=== PATIENT | male | born 1985 | race Caucasian/White ===

== ENCOUNTER 2020-04-06 08:28 | Emergency (ER) | payer SELFPAY ==
[2020-04-06 08:45] VITALS: BP 148/85; PULSE 103; RESP 20; TEMP 36.6; O2SAT 98
--- NOTE | 2020-04-06 09:21 | ED.GENADULT ---
HPI - General Adult General Chief complaint: Upper Respiratory Infection Stated complaint: ACHES SOB Source: patient Mode of arrival: ambulatory Limitations: no limitations History of Present Illness HPI narrative: Remington is a previously healthy 34M that presented to the ED with 1 day of worsening fatigue, body aches, mild cough, and sore throat. No CP or SOB reported. He is unsure of any sick/COVID contacts. Symptoms were mildly better with ibuprofen and rest. No GI symptoms. Related Data Home Medications Medication Instructions Recorded Confirmed No Home Medications 04/06/20 04/06/20 Allergies Allergy/AdvReac Type Severity Reaction Status Date / Time No Known Allergies Allergy Unverified 11/28/17 21:42 Review of Systems Constitutional: Constitutional: Reports chills, Reports fatigue, Denies fever(s) and Reports weakness Eyes: Eyes: Reports no additional eye complaints and Denies change in vision ENT: Reports as per HPI Cardiovascular: Cardiovascular: Denies chest pain and Denies radiating jaw, neck or arm pain Respiratory: Respiratory: Reports as per HPI, Reports cough, Denies dyspnea and Denies wheezing Gastrointestinal: Gastrointestinal: Denies abdominal pain, Denies nausea and Denies vomiting Genitourinary: Genitourinary: Reports no additional male genitourinary complaints Musculoskeletal: Musculoskeletal: Reports no additional musculoskeletal complaints Integumentary/Breasts: Skin/Breast: Reports system reviewed and no additional complaints, except as docu Neurologic: Reports system reviewed and no additional complaints, except as documented Psychiatric: Psychiatric: Reports no additional psychiatric complaints Exam Const: General: no acute distress and alert Orientation/consciousness: patient oriented x3 Limitations: No altered mental status HENMT: Head: normal to inspection Other: atraumatic Eyes: Conjunctivae: conjunctivae normal Pupils: Equal, round and reactive pupils present Neck: Neck: normal visual inspection Chest: Chest palpation & inspection: normal inspection of the chest Resp: Effort & Inspection: normal respiratory effort, not labored, no retractions and not tachypneic Auscultation: clear to auscultation bilaterally Other: No cough on exam Cardio: Rate: regular rate Rhythm: regular rhythm Heart sounds: no murmurs GI: Inspection: non-distended GI Palp: Yes Soft to palpation, No Tenderness to palpation present (GI) and No Guarding due to palpation present (GI) Auscultation: normal bowel sounds Skin: General skin exam: normal color Rashes: no rashes Neuro: General: patient oriented x3 and moves all extremities Extrem: General: normal to inspection Psych: Mental Status: mental status grossly normal Course Course Emergency Course: Remington was evaluated. He was given IM toradol for the pain. Labs were ordered as below. COVID test was positive. Other labs were unremarkable. He was educated on what too look for and to quarantine then discharged. Vital Signs Vital signs: Vital Signs Temperature 97.8 F 04/06/20 08:45 Pulse Rate 103 H 04/06/20 08:45 Respiratory Rate 20 04/06/20 08:45 Blood Pressure 148/85 H 04/06/20 08:45 Pulse Oximetry 98 04/06/20 08:45 Temperature 97.8 F 04/06/20 08:45 Pulse Rate 103 H 04/06/20 08:45 Respiratory Rate 20 04/06/20 08:45 Blood Pressure 148/85 H 04/06/20 08:45 Pulse Oximetry 98 04/06/20 08:45 Medical Decision Making Vital Signs Vital Signs: Vital Signs Temperature 97.8 F 04/06/20 08:45 Pulse Rate 103 H 04/06/20 08:45 Respiratory Rate 20 04/06/20 08:45 Blood Pressure 148/85 H 04/06/20 08:45 Pulse Oximetry 98 04/06/20 08:45 Temperature 97.8 F 04/06/20 08:45 Pulse Rate 103 H 04/06/20 08:45 Respiratory Rate 20 04/06/20 08:45 Blood Pressure 148/85 H 04/06/20 08:45 Pulse Oximetry 98 04/06/20 08:45 Lab Data Result diagrams: 04/06/20 09:18 1
[2020-04-06 09:26] LABS: Hematocrit 48.4 % (40.0-54.0); Hemoglobin 16.3 g/dL (14.0-18.0); Mean Corpuscular HGB Conc 33.7 g/dL (32.0-36.0); Mean Corpuscular Hemoglobin 30.4 pg (27.0-31.0); Mean Corpuscular Volume 90.1 fL (78.0-102.0); Mean Platelet Volume 8.6 fl (8.7-11.0); Platelet Count Result 268 K/mm3 (150-420); Red Blood Count 5.37 M/mm3 (4.70-6.10); Red Cell Distribution Width 11.7 % (11.6-14.4); White Blood Count 5.6 K/mm3 (4.8-10.8)
[2020-04-06] MEDS: KETOROLAC (*BKC) 60 MG/2 ML VIAL 30 MG IM (09:30)
[2020-04-06 09:43] LABS: Alanine Aminotransferase 66 U/L (16-63); Alkaline Phosphatase 70 U/L (46-116); Anion Gap 10 mmol/L (8-16); Aspartate Amino Transferase 28 U/L (15-37); Bilirubin,Total 0.3 mg/dL (0.00-1.00); Blood Urea Nitrogen 10 mg/dL (7-18); Calcium 8.8 mg/dL (8.5-10.1); Carbon Dioxide 25 mmol/L (21-32); Chloride 103 mmol/L (98-108); Estimated CRCL calculation 104 ml/min; Estimated Glomerular Filt Rate > 60; Glucose 89 mg/dL (70-99); Osmolality Calculated 284 mOsm/kg (285-295); Potassium 4.5 mmol/L (3.5-5.1); Sodium 138 mmol/L (136-145); Total Protein 7.8 g/dL (6.4-8.2)
[2020-04-06 09:45] LABS: Influenza Control Valid (Valid)
[2020-04-06 09:46] LABS: SARS-CoV-2 Ag Positive (Negative)
[2020-04-06 10:01] LABS: Band Neutrophils Percent 0 % (0-6); Basophils Percent Manual 0 % (0-1); Eosinophils Absolute Manual 0.05 K/mm3 (0.02-0.5); Eosinophils Percent Manual 1 % (1-6); Lymphocytes Absolute Manual 0.78 K/mm3 (1.1-4.5); Lymphocytes Percent Manual 14 % (18-44); Monocytes Absolute Manual 0.61 K/mm3 (0.1-0.90); Monocytes Percent Manual 11 % (3-9); Neutrophils Absolute Manual 4.14 K/mm3 (1.3-6.7); Neutrophils Percent Manual 74 % (46-73); Platelet Estimate Adequate (Adequate); Total Cells Counted 100
[2020-04-06 10:04] VITALS: BP 148/85; PULSE 98; RESP 20; TEMP 36.8; O2SAT 97
== END 2020-04-06 10:15 | disposition home or self-care (01) ==
PROVIDERS: Emergency Provider Family Medicine; PCP Internal Medicine
DX: U07.1 COVID-19 (principal)
CPT/HCPCS: 36415; 80053; 85025; 87081; 87426; 87804; 87880; 96372; 99282; 99283; J1885

== ENCOUNTER 2020-05-23 10:25 | Emergency (ER) | payer SELFPAY ==
--- NOTE | ~2020-05-23 | CT_ITS ---
EXAMINATION: CT chest abdomen wo con DATE: 05/23/2020 11:24 INDICATION: Patient fell from ladder. Right lower chest and right upper quadrant abdominal trauma. TECHNIQUE: Computed tomography (CT) of the chest and abdomen was performed without intravenous contra st. Automated exposure control and iterative reconstruction technique were employed. Exam dose: 1099 .20 mGy-cm total exam DLP. COMPARISON: None FINDINGS: CHEST CT: The lungs are clear of infiltrate or consolidation. No pulmonary mass lesion is detected. Normal heart size. No pericardial or pleural effusion. No thoracic aortic aneurysm. No hilar or media stinal mass lesion or lymphadenopathy. ABDOMEN CT: No space-occupying mass lesion or laceration of the liver, spleen, pancreas, adrenal glands or kidney s is detected. The gallbladder is present. No bile duct or pancreatic duct dilatation. No urinary tract calculus or hydroureteronephrosis. Status post appendectomy. No bowel obstruction, bowel wall thickening, pneumatosis or intraperitoneal free air. Included skeletal structures are unremarkable. No rib fracture or thoracic or lumbar spine fracture i s evident. IMPRESSION: No significant abnormality Reviewed, dictated and finalized at [facility]. Reviewed, dictated and finalized at [facility]. [employer]ELOPER IMPRESSION: No significant abnormality
[2020-05-23 10:35] VITALS: BP 156/122; PULSE 102; RESP 20; TEMP 37; O2SAT 99
[2020-05-23] MEDS: KETOROLAC (*BKC) 60 MG/2 ML VIAL IM (11:11)
[2020-05-23 11:51] VITALS: BP 134/98
--- NOTE | 2020-05-23 11:53 | ED.FALL ---
HPI - Fall General Chief Complaint: Fall Stated Complaint: Fell off a ladder Time Seen by Provider: 05/23/20 10:40 Source: patient Mode of arrival: ambulatory Limitations: no limitations History of Present Illness HPI Narrative: Patient was working on a ladder and fell about 9:30am after loosing footing on a ladder. He was about 6 foot up at the time when he fell. He landed on a pole, on his right lower chest / right upper abdomen, and he comes in with a bruise to his right lower chest / upper abdomen area. He says he wants to be checked out because he has pain when he breathes. Pain is moderately severe, sharp, and ongoing, made worse with any movement. Pain has not been relieved by measures taken at home. Severity scale (1-10): 8 Related Data Allergies Allergy/AdvReac Type Severity Reaction Status Date / Time No Known Allergies Allergy Unverified 11/28/17 21:42 Review of Systems Constitutional: Constitutional: Reports no additional constitutional complaints Eyes: Eyes: Reports no additional eye complaints ENT: Reports system reviewed and no additional complaints, except as documented Cardiovascular: Cardiovascular: Reports no additional cardiovascular complaints Respiratory: Respiratory: Reports no additional respiratory complaints Comments: Sharp pain when deep breathing Gastrointestinal: Gastrointestinal: Reports no additional gastrointestinal complaints Genitourinary: Genitourinary: Reports no additional male genitourinary complaints Musculoskeletal: Musculoskeletal: Reports no additional musculoskeletal complaints Integumentary/Breasts: Skin/Breast: Reports system reviewed and no additional complaints, except as docu Neurologic: Reports system reviewed and no additional complaints, except as documented Psychiatric: Psychiatric: Reports no additional psychiatric complaints Endocrine: Endocrine: Reports no additional endocrine complaints Hematologic/Lymphatic: Hematologic/Lymphatic: Reports no additional hematologic/lymphatic complaints Allergic/Immunologic: Allergic/Immunologic: Reports no additional allergic/immunologic complaints [facility] Past Medical History Medical History No significant past medical history Surgical History Surgical History H/O shoulder surgery History of appendectomy Family History Family History Father COPD (chronic obstructive pulmonary disease) Social History Social History Smoking status: Never smoker Alcohol use details: rare alcohol use Exam Const: Orientation/consciousness: patient oriented x3 Other: mild distress HENMT: Head: normal to inspection Face and sinus: normal facial exam Eyes: Conjunctivae: conjunctivae normal Neck: Neck: normal visual inspection Chest: Chest palpation & inspection: normal inspection of the chest Resp: Effort & Inspection: normal respiratory effort Auscultation: clear to auscultation bilaterally Cardio: Rate: regular rate Rhythm: regular rhythm GI: GI Palp: Yes Soft to palpation Other: mild tenderness in RUQ /lower chest Back/Spine/Pelvis: Back: no CVA tenderness Skin: General skin exam: normal color Neuro: General: patient oriented x3 and moves all extremities Extrem: General: normal to inspection Psych: Mental Status: mental status grossly normal Course Course Emergency Course: He appears improved after ketorolac was given. CT of chest and abdomen was reviewed with the patient, which was negative. Vital Signs Vital signs: Vital Signs Temperature 37.0 C 05/23/20 10:35 Pulse Rate 102 H 05/23/20 10:35 Respiratory Rate 20 05/23/20 10:35 Blood Pressure 156/122 H 05/23/20 10:35 Pulse Oximetry 99 05/23/20 10:35 Temperature 37.0 C 05/23/20 10:35 Pulse Rate 102 H 05/23/20 10:35
== END 2020-05-23 12:02 | disposition home or self-care (01) ==
PROVIDERS: Emergency Provider Emergency Medicine; PCP Internal Medicine
DX: S30.1XXA Contusion of abdominal wall, initial encounter (principal); W11.XXXA Fall on and from ladder, initial encounter
CPT/HCPCS: 71250; 74150; 96372; 99283; 99284; J1885

== ENCOUNTER 2021-03-29 20:50 | Emergency (ER) | payer SELFPAY ==
--- NOTE | ~2021-03-29 | XR_ITS ---
EXAMINATION: XR hand RT min 3V EXAM DATE: 03/29/2021 22:28 INDICATION: Pain/swelling @ 3-5 metacarpals after smashing it in a door. TECHNIQUE: Right hand frontal, lateral and oblique projections obtained and reviewed. There is no pr ior study for comparison. FINDINGS: Right metacarpal bones are unremarkable. There are no acute fractures or dislocations iden tified. There is no subcutaneous gas. There is soft tissue swelling over the metacarpal bones. The re are no radiopaque foreign bodies. IMPRESSION: 1. Right hand exam without acute osseous findings. 2. Soft tissue swelling. Reviewed, dictated and finalized at location [facility]. FILLER
[2021-03-29 21:47] VITALS: BP 145/110; PULSE 100; RESP 21; TEMP 36.8; O2SAT 98
--- NOTE | 2021-03-29 22:14 | ED.GENADULT ---
HPI - General Adult General Chief complaint: Nausea/Vomiting/Diarrhea Stated complaint: throwing up, RT hand injury Source: patient and family Mode of arrival: ambulatory Limitations: no limitations History of Present Illness HPI narrative: Remington is a previously healthy 35M that presented to the ED with abdominal pain, nausea, vomiting and hand pain. He started having abdominal pain 2-3 days ago. He then started having several episodes of non-bloody vomiting and nausea. He denies CP, SOB, fevers, chills, painful urination and diarrhea. He also smashed his right hand while moving a fridge a couple days ago. It is still painful and swollen. Related Data Home Medications Medication Instructions Recorded Confirmed omeprazole magnesium [Prilosec OTC] 20 mg PO DAILY 03/29/21 03/29/21 Allergies Allergy/AdvReac Type Severity Reaction Status Date / Time No Known Allergies Allergy Verified 03/29/21 21:46 Review of Systems Constitutional: Constitutional: Reports no additional constitutional complaints Eyes: Eyes: Reports no additional eye complaints ENT: Reports system reviewed and no additional complaints, except as documented Cardiovascular: Cardiovascular: Reports no additional cardiovascular complaints Respiratory: Respiratory: Reports no additional respiratory complaints Gastrointestinal: Gastrointestinal: Reports as per HPI Genitourinary: Genitourinary: Reports no additional male genitourinary complaints Musculoskeletal: Musculoskeletal: Reports no additional musculoskeletal complaints Integumentary/Breasts: Skin/Breast: Reports system reviewed and no additional complaints, except as docu Neurologic: Reports system reviewed and no additional complaints, except as documented Psychiatric: Psychiatric: Reports no additional psychiatric complaints Endocrine: Endocrine: Reports no additional endocrine complaints Hematologic/Lymphatic: Hematologic/Lymphatic: Reports no additional hematologic/lymphatic complaints Allergic/Immunologic: Allergic/Immunologic: Reports no additional allergic/immunologic complaints [facility] Past Medical History Medical History No significant past medical history Surgical History Surgical History H/O shoulder surgery History of appendectomy Family History Family History Father COPD (chronic obstructive pulmonary disease) Social History Social History Smoking status: Never smoker Alcohol use details: rare alcohol use Exam Const: General: no acute distress and alert; No confusion Orientation/consciousness: patient oriented x3 Limitations: No altered mental status HENMT: Head: normal to inspection Other: normocephalic, atraumatic Eyes: Conjunctivae: conjunctivae normal Pupils: Equal, round and reactive pupils present Neck: Neck: normal visual inspection Chest: Chest palpation & inspection: normal inspection of the chest Resp: Effort & Inspection: normal respiratory effort, not labored and not tachypneic Auscultation: clear to auscultation bilaterally Cardio: Rate: regular rate Rhythm: regular rhythm GI: Inspection: non-distended GI Palp: Yes Soft to palpation, No Tenderness to palpation present (GI), No Guarding due to palpation present (GI) and No Rigid due to palpation Auscultation: normal bowel sounds Back/Spine/Pelvis: Back: no CVA tenderness Skin: General skin exam: normal color Rashes: no rashes Neuro: General: patient oriented x3 and moves all extremities Extrem: General: normal to inspection Psych: Appearance: grossly normal Mental Status: mental status grossly normal Course Course Emergency Course: Ordered zofran, and toradol for nausea and pain. Ordered labs, xrays and fluids. He turned down the IV fluids an
[2021-03-29 22:26] LABS: Basophils Absolute Auto 0.08 K/mm3 (0.00-0.10); Basophils Percent Auto 0.7 % (0.0-1.0); Eosinophils Absolute Auto 0.12 K/mm3 (0.02-0.50); Hematocrit 49.1 % (40.0-54.0); Hemoglobin 16.8 g/dL (14.0-18.0); Immature Granulocyte Absolute 0.03 K/mm3 (0.00-0.00); Immature Granulocyte Percent A 0.3 % (0.0-0.0); Lymphocytes Absolute Auto 3.43 K/mm3 (1.10-4.50); Lymphocytes Percent Auto 29.6 % (18.0-42.0); Mean Corpuscular HGB Conc 34.2 g/dL (32.0-36.0); Mean Corpuscular Volume 87.7 fL (78.0-102.0); Mean Platelet Volume 8.7 fl (8.7-11.0); Monocytes Absolute Auto 0.87 K/mm3 (0.10-0.90); Monocytes Percent Auto 7.5 % (2.0-11.0); Neutrophils Absolute Auto 7.1 K/mm3 (1.7-7.2); Neutrophils Percent Auto 60.9 % (50.0-70.0); Platelet Count Result 350 K/mm3 (150-420); Red Cell Distribution Width 11.6 % (11.6-14.4); White Blood Count 11.6 K/mm3 (4.8-10.8)
[2021-03-29 22:44] LABS: Alanine Aminotransferase 107 U/L (16-63); Alkaline Phosphatase 84 U/L (46-116); Anion Gap 10 mmol/L (8-16); Aspartate Amino Transferase 38 U/L (15-37); Bilirubin,Total 0.4 mg/dL (0.00-1.00); Blood Urea Nitrogen 13 mg/dL (7-18); Calcium 9.2 mg/dL (8.5-10.1); Carbon Dioxide 25 mmol/L (21-32); Chloride 104 mmol/L (98-108); Estimated CRCL calculation 114 ml/min; Estimated Glomerular Filt Rate > 60; Glucose 92 mg/dL (70-99); Osmolality Calculated 288 mOsm/kg (285-295); Potassium 3.9 mmol/L (3.5-5.1); Sodium 139 mmol/L (136-145); Total Protein 7.4 g/dL (6.4-8.2)
[2021-03-29] MEDS: ACETAMINOPHEN 500 MG TABLET 1000 MG PO (22:45)
[2021-03-29] MEDS: ONDANSETRON HCL ODT 4 MG TABLET PO (22:45)
[2021-03-29 23:38] VITALS: BP 136/87; PULSE 80; RESP 20; TEMP 36.2; O2SAT 98
== END 2021-03-29 23:40 | disposition home or self-care (01) ==
PROVIDERS: Emergency Provider Family Medicine; PCP Internal Medicine
DX: K52.9 Noninfective gastroenteritis and colitis, unspecified (principal); M79.641 Pain in right hand
CPT/HCPCS: 36415; 73130; 80053; 85025; 99283; A9270

== ENCOUNTER 2023-01-07 07:09 | Emergency (ER) | payer SELFPAY ==
--- NOTE | ~2023-01-07 | CT_ITS ---
EXAMINATION: CT abdomen pelvis w con DATE: 01/07/2023 08:58 INDICATION: Acute left lower quadrant pain. Nausea and vomiting. TECHNIQUE: Computed tomography (CT) of the abdomen and pelvis was performed with 100 cc Omnipaque 350 intravenous contrast. The dose-length product was 1315.49 mGy-cm. Automated exposure control and ite rative reconstruction technique were employed. COMPARISON: CT dated 05/23/2020 FINDINGS: Lung bases are unremarkable. Heart size normal. No significant pleural or pericardial effus ion. Fatty infiltration of the liver. Gallbladder is present. The spleen, pancreas, adrenal glands an d right kidney are unremarkable. Small subcentimeter cyst of the left kidney. No significant vascular abnormalities. No lymphadenopathy. No free air or free fluid. Small fat-containing umbilical hernia. No significant vascular abnormality. No lymphadenopathy. No acute osseous abnormality. Mild osteoart hritis of the hips. IMPRESSION: 1. No acute abdominal abnormality. Reviewed, dictated and finalized at location [facility].
[2023-01-07 07:09] VITALS: BP 138/109; PULSE 104; RESP 16; TEMP 36.5; O2SAT 95
--- NOTE | 2023-01-07 07:17 | ED.GENADULT ---
HPI - General Adult General Chief complaint: Abdominal Pain Stated complaint: Left side abdominal pain Time Seen by Provider: 01/07/23 07:16 History of Present Illness HPI narrative: 37yo man presents with acute lft lower quadrant abd pain for the past several hours with nausea. Has had this before. No fever, diarrhea, or bloody stools or urine. Related Data Allergies Allergy/AdvReac Type Severity Reaction Status Date / Time No Known Allergies Allergy Verified 01/07/23 07:17 Review of Systems Constitutional: Constitutional: Denies chills and Denies fever(s) ENT: Denies dysphagia Cardiovascular: Cardiovascular: Denies chest pain Respiratory: Respiratory: Denies dyspnea Gastrointestinal: Gastrointestinal: Reports abdominal pain PMFSH Past Medical History Medical History No significant past medical history Surgical History Surgical History H/O shoulder surgery History of appendectomy Family History Family History Father COPD (chronic obstructive pulmonary disease) Social History Social History Smoking status: Never smoker Alcohol use details: rare alcohol use Exam Const: General: healthy appearing and no acute distress Nutritional Appearance: well nourished Eyes: Conjunctivae: conjunctivae normal Resp: Effort & Inspection: normal respiratory effort and not labored Cardio: Rate: regular rate GI: Inspection: distended GI Palp: Yes Soft to palpation and No Tenderness to palpation present (GI) Skin: General skin exam: normal color, no jaundice and no pallor Extrem: General: no clubbing, cyanosis or edema Other: normal gait Medical Decision Making MDM Narrative Medical decision making narrative: acute LLQ DDx colitis, diverticulitis, renal colic, cystitis, gas pain Lab Data Lab results reviewed: Yes I reviewed the patient's lab results. Discharge Plan Discharge Clinical Impression: Acute abdominal pain in left lower quadrant Patient Disposition: Home, Self-Care Condition: Improved Additional Instructions: Your bloodwork, urine, and CT were all normal. No further testing or treatment is needed. Take the prescribed medication as needed for nausea. Prescriptions: New ondansetron 4 mg tablet,disintegrating 4 mg PO Q6H PRN (Reason: nausea and vomiting) Qty: 20 0RF Follow-up/Referrals: Pradip Olvera MD [Primary Care Provider] - Time of Disposition: 10:16
[2023-01-07] MEDS: ONDANSETRON INJ 4 MG/2 ML VIAL 8 MG IV PUSH (07:40)
[2023-01-07] MEDS: KETOROLAC 30 MG/ML VIAL (*BKC) IV PUSH (07:43)
[2023-01-07 08:18] LABS: Appearance Urine Clear (Clear); Basophils Absolute Auto 0.09 K/mm3 (0.00-0.10); Basophils Percent Auto 1.1 % (0.0-1.0); Bilirubin Urine Negative (Negative); Blood Urine Negative (Negative); Color Urine Yellow (Yellow); Eosinophils Absolute Auto 0.09 K/mm3 (0.02-0.50); Eosinophils Percent Auto 1.1 % (1.0-6.0); Glucose Urine UA Negative (Negative); Hematocrit 49.7 % (40.0-54.0); Hemoglobin 17.3 g/dL (14.0-18.0); Immature Granulocyte Absolute 0.02 K/mm3 (0.00-0.00); Immature Granulocyte Percent A 0.3 % (0.0-0.0); Ketones Urine Negative (Negative); Leukocyte Esterase Ur Negative LEU/UL (Negative); Lymphocytes Absolute Auto 2.37 K/mm3 (1.10-4.50); Lymphocytes Percent Auto 29.8 % (18.0-42.0); Mean Corpuscular HGB Conc 34.8 g/dL (32.0-36.0); Mean Corpuscular Hemoglobin 30.8 pg (27.0-31.0); Mean Corpuscular Volume 88.4 fL (78.0-102.0); Mean Platelet Volume 9.1 fl (8.7-11.0); Monocytes Absolute Auto 0.56 K/mm3 (0.10-0.90); Neutrophils Absolute Auto 4.8 K/mm3 (1.7-7.2); Neutrophils Percent Auto 60.7 % (50.0-70.0); Nitrate Urine Negative (Negative); Platelet Count Result 326 K/mm3 (150-420); Protein Urine Negative (Negative); Red Blood Count 5.62 M/mm3 (4.70-6.10); Red Cell Distribution Width 11.6 % (11.6-14.4); Specific Grav Ur 1.015 (1.010-1.020)
[2023-01-07 08:24] VITALS: BP 135/82; PULSE 86; RESP 16
[2023-01-07 08:25] LABS: Add Urine Microscopic? NO
[2023-01-07 08:31] LABS: Alanine Aminotransferase 71 U/L (16-63); Albumin Level 3.6 g/dL (3.4-5.0); Alkaline Phosphatase 76 U/L (46-116); Anion Gap 4 mmol/L (8-16); Aspartate Amino Transferase 26 U/L (15-37); Bilirubin,Total 0.3 mg/dL (0.00-1.00); Blood Urea Nitrogen 10 mg/dL (7-18); Calcium 9.1 mg/dL (8.5-10.1); Carbon Dioxide 31 mmol/L (21-32); Chloride 106 mmol/L (98-108); Estimated Glomerular Filt Rate > 60; Glucose 105 mg/dL (70-99); Osmolality Calculated 291 mOsm/kg (285-295); Potassium 4.3 mmol/L (3.5-5.1); Sodium 141 mmol/L (136-145); Total Protein 7.2 g/dL (6.4-8.2)
--- NOTE | 2023-01-07 09:12 | PC.NURSE ---
PT IS AWAITING CT RESULTS AT THIS TIME. NAD NOTED, PT IS TEXTING ON CELL WITHOUT DISTRESS. PT REPORTS THE NAUSEA HAS IMPROVED, PAIN REMAINS, HOWEVER IT IS NO LONGER WAXING AND WANING. NAD NOTED. WILL CONTINUE TO MONITOR.
--- NOTE | 2023-01-07 09:56 | PC.NURSE ---
09 ERP NOTIFIED RESULTS WERE IN 954 ERP NOTIFIED RESULTES WERE IN
[2023-01-07 09:57] VITALS: BP 132/86; PULSE 76; RESP 14; TEMP 36.8; O2SAT 99
== END 2023-01-07 10:22 | disposition home or self-care (01) ==
PROVIDERS: Emergency Provider Emergency Medicine; PCP Internal Medicine
DX: R10.32 Left lower quadrant pain (principal)
CPT/HCPCS: 36415; 74177; 80053; 81003; 85025; 96374; 96375; 99284; J1885; J2405; Q9967

== ENCOUNTER 2023-05-18 22:50 | Observation (INO) | payer SELFPAY ==
[2023-05-18 22:50] VITALS: BP 167/106; PULSE 138; RESP 22; TEMP 36.6; O2SAT 97
[2023-05-18 23:00] VITALS: O2SAT 98
[2023-05-18] MEDS: MORPHINE SULFATE (*CRX) 2 MG/ML INJ IV PUSH (23:04)
[2023-05-18] MEDS: MORPHINE SULFATE (*CRX) 4 MG/ML INJ IV PUSH (23:04)
[2023-05-18] MEDS: SODIUM CHLORIDE 0.9% IV 1,000 ML 999 ML IV CONT ×2 (23:05→23:56)
[2023-05-18] MEDS: HYDROmorphone HCL INJ (*CRX) 2 MG/ML VIAL 0.5 MG IV PUSH (23:17)
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
[2023-05-18] MEDS: HYDROmorphone HCL INJ (*CRX) 2 MG/ML VIAL 1 MG IV PUSH ×2 (23:39→23:58)
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
[2023-05-19] MEDS: GENTAMICIN SULFATE 0.3% OP SOL 5 ML BTL 2 DROP RIGHT EYE ×3 (00:02→05:41)
[2023-05-19 00:54] VITALS: BP 150/97; PULSE 104; RESP 20; O2SAT 96
--- NOTE | 2023-05-19 00:55 | PC.NURSE ---
Pt restless and uncomfortable due to severe pain, spoke c Dr Brown about possible admit for pain management. Pt and his want to stay for pain control.
[2023-05-19 01:02] LABS: INR 0.9; Partial Thromboplastin Time 29.9 SEC (23.90-30.70); Prothrombin Time 10.1 Seconds (9.50-12.10)
[2023-05-19 01:16] LABS: Alanine Aminotransferase 53 U/L (16-63); Albumin Level 3.6 g/dL (3.4-5.0); Alkaline Phosphatase 67 U/L (46-116); Anion Gap 9 mmol/L (8-16); Aspartate Amino Transferase 23 U/L (15-37); Bilirubin,Total 0.2 mg/dL (0.00-1.00); Blood Urea Nitrogen 11 mg/dL (7-18); Calcium 7.8 mg/dL (8.5-10.1); Carbon Dioxide 27 mmol/L (21-32); Chloride 103 mmol/L (98-108); Creatine Kinase 74 U/L (39-308); Estimated CRCL calculation 89 ml/min; Estimated Glomerular Filt Rate > 60; Glucose 108 mg/dL (70-99); Magnesium 1.9 mg/dL (1.8-2.4); Osmolality Calculated 288 mOsm/kg (285-295); Potassium 3.8 mmol/L (3.5-5.1); Sodium 139 mmol/L (136-145); Total Protein 7.1 g/dL (6.4-8.2)
[2023-05-19 01:19] LABS: Basophils Absolute Auto 0.06 K/mm3 (0.00-0.10); Basophils Percent Auto 0.7 % (0.0-1.0); Eosinophils Absolute Auto 0.12 K/mm3 (0.02-0.50); Eosinophils Percent Auto 1.4 % (1.0-6.0); Hematocrit 47.4 % (40.0-54.0); Hemoglobin 16.1 g/dL (14.0-18.0); Immature Granulocyte Absolute 0.11 K/mm3 (0.00-0.00); Immature Granulocyte Percent A 1.3 % (0.0-0.0); Lymphocytes Absolute Auto 2.46 K/mm3 (1.10-4.50); Lymphocytes Percent Auto 28.3 % (18.0-42.0); Mean Corpuscular Hemoglobin 30.6 pg (27.0-31.0); Mean Corpuscular Volume 90.1 fL (78.0-102.0); Mean Platelet Volume 9.1 fl (8.7-11.0); Monocytes Absolute Auto 0.52 K/mm3 (0.10-0.90); Neutrophils Absolute Auto 5.4 K/mm3 (1.7-7.2); Neutrophils Percent Auto 62.3 % (50.0-70.0); Platelet Count Result 303 K/mm3 (150-420); Red Blood Count 5.26 M/mm3 (4.70-6.10); Red Cell Distribution Width 11.5 % (11.6-14.4); White Blood Count 8.7 K/mm3 (4.8-10.8)
[2023-05-19] MEDS: HYDROmorphone HCL INJ (*CRX) 2 MG/ML VIAL 0.5 MG IV PUSH ×5 (01:23→10:48)
[2023-05-19 01:33] VITALS: BP 155/87; PULSE 79; RESP 20; TEMP 36.6; O2SAT 99
[2023-05-19 01:45] VITALS: BP 134/91; PULSE 100; RESP 20; TEMP 36.3; O2SAT 92
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
--- NOTE | 2023-05-19 01:59 | ADMGEN ---
This patient, Remington Dubois III, was admitted to 2nd Floor Room 226-2. Patient/family oriented to hospital policies and general routines including ID bracelet, bed and alarms, visiting hours, pain management, procedures, bathroom and other care routines, personal items, smoking policy, room service/diet, and visiting hours. Information on how to activate the Rapid Response Team has been discussed. Patient/Family are encouraged to report perceived risks to care and to ask questions if they do not understand what they are told or what they should do.
[2023-05-19 02:02] VITALS: BMI 36.1
[2023-05-19] MEDS: ONDANSETRON INJ 4 MG/2 ML VIAL IV PUSH (02:22)
[2023-05-19] MEDS: ARTIFICIAL TEARS OPHTH SOLN 15 ML BOTTLE 1 DROP EACH EYE (03:33)
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
[2023-05-19 04:00] VITALS: BP 129/88; PULSE 88; RESP 18; TEMP 36.6; O2SAT 94
--- NOTE | 2023-05-19 05:50 | PC.NURSE ---
Patient given Dilaudid as ordered for pain. Patient continues to complain of feeling like something is in his eye. Patient has used the artificial tears. Patient reports being able to see out of the right eye a little bit if he covers his left eye and can keep right one open even a second. Reports getting a little bit of sleep. Call light in reach.
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
[2023-05-19 08:00] VITALS: BP 141/92; PULSE 85; PULSE 92; RESP 16; TEMP 36.2; O2SAT 93
--- NOTE | 2023-05-19 08:30 | PC.NURSE ---
[facility] transfer line contacted to consult for possible need for transfer/consult for stamp press operator. Waiting for call back. ANDREZ Ng spoke with transfer line as well.
--- NOTE | 2023-05-19 10:00 | PC.NURSE ---
[facility] transfer line returned call to Hernandez MAGUIRE. Recommendations from qualified craft worker electrician for patient care given. Patient okayed to follow up with qualified craft worker electrician OP and [facility].
[2023-05-19] MEDS: NEOMYCIN/POLYMYXIN/DEXAMETH OP SUSP 5 ML BTL 1 DROP RIGHT EYE (11:56)
[2023-05-19] MEDS: ATROPINE SULFATE 1% OPHTH SOLN 5 ML BOTTLE 1 DROP RIGHT EYE (11:56)
[2023-05-19] MEDS: ERYTHROMYCIN OPHTH OINTMENT 3.5 GM TUBE 1 APPLIC RIGHT EYE (11:56)
--- NOTE | 2023-05-19 12:00 | PC.NURSE ---
Discharge packet reviewed with patient and significant other. All questions answered. Pt ambulated self downstairs for discharge.
--- NOTE | 2023-05-21 09:12 | PC.NURSE ---
Discharge call back attempted, voicemail, unable to reach
--- NOTE | 2023-05-22 11:46 | PC.NURSE ---
Discharge call back attempted, no answer
--- NOTE | 2023-05-23 08:14 | PC.NURSE ---
Unable to reach for follow up, goes straight to voicemail
== END 2023-05-19 12:00 | disposition home or self-care (01) ==
LOC: CHSED 05-19 01:02 → CHS2ND 05-19 01:30
PROVIDERS: Admitting Provider Internal Medicine; Emergency Provider Emergency Medicine; PCP Internal Medicine; Visit Provider Internal Medicine
DX: T20.26XA Burn of second degree of forehead and cheek, initial encounter (principal); T26.11XA Burn of cornea and conjunctival sac, right eye, initial encounter; T26.01XA Burn of right eyelid and periocular area, initial encounter; T31.0 Burns involving less than 10% of body surface; X08.8XXA Exposure to other specified smoke, fire and flames, initial encounter; Y92.009 Unspecified place in unspecified non-institutional (private) residence as the place of occurrence of the external cause; H04.123 Dry eye syndrome of bilateral lacrimal glands; F17.290 Nicotine dependence, other tobacco product, uncomplicated; F10.90 Alcohol use, unspecified, uncomplicated; Z79.891 Long term (current) use of opiate analgesic; Z79.899 Other long term (current) drug therapy
CPT/HCPCS: 36415; 80053; 82550; 83735; 85025; 85610; 85730; 96361; 96374; 96375; 96376; 99285; A9270; G0378; J1170; J2270; J2405; J7030

== ENCOUNTER 2023-07-17 10:14 | Emergency (ER) | payer SELFPAY ==
[2023-07-17 10:14] VITALS: BP 144/104; PULSE 98; RESP 16; TEMP 36.1; O2SAT 97
--- NOTE | 2023-07-17 10:19 | ED.ABDPAIN ---
HPI - Abdominal Pain General Chief Complaint: Abdominal Pain Stated Complaint: abdominal pain and vomiting x 2 days Time Seen by Provider: 07/17/23 10:18 Source: patient Mode of arrival: ambulatory Limitations: no limitations History of Present Illness HPI narrative: 37-year-old male with a history of appendectomy, dyspepsia, Prior history of excessive alcohol use, presents to the ER with a 2 day history of -- abdominal pain-- Pain is located in the right upper quadrant. -- multiple episodes of vomiting. the last episode of vomiting was midnight -- multiple episodes of watery diarrhea. No fever. No hematemesis or melena. MD elicited complaint: abdominal pain Onset (ago): day(s) ( 2 days) Pain Consistency: constant Location: RUQ Severity: mild Pain scale (0-10): 6 Quality: aching Radiation: none Migration to: no migration Exacerbating factors: eating Relieving factors: nothing Context: confirms possible food poisoning ( symptoms started after he ate a burger 2 days ago.) Associated symptoms: nausea, vomiting and diarrhea Treatments prior to arrival: NSAIDs Related Data Allergies Allergy/AdvReac Type Severity Reaction Status Date / Time No Known Allergies Allergy Verified 07/17/23 10:33 Review of Systems Review of Systems: All systems reviewed & are unremarkable except as noted in HPI and below Constitutional: Constitutional: Reports as per HPI and Reports no additional constitutional complaints Eyes: Eyes: Reports as per HPI and Reports no additional eye complaints ENT: Reports system reviewed and no additional complaints, except as documented and Reports as per HPI Cardiovascular: Cardiovascular: Reports as per HPI and Reports no additional cardiovascular complaints Respiratory: Respiratory: Reports as per HPI and Reports no additional respiratory complaints Gastrointestinal: Gastrointestinal: Reports as per HPI, Reports no additional gastrointestinal complaints, Reports abdominal pain, Reports diarrhea, Reports nausea and Reports vomiting Genitourinary: Genitourinary: Reports no additional male genitourinary complaints and Reports as per HPI Musculoskeletal: Musculoskeletal: Reports no additional musculoskeletal complaints and Reports as per HPI Integumentary/Breasts: Skin/Breast: Reports system reviewed and no additional complaints, except as docu and Reports as per HPI Neurologic: Reports system reviewed and no additional complaints, except as documented and Reports as per HPI Psychiatric: Psychiatric: Reports no additional psychiatric complaints and Reports as per HPI Endocrine: Endocrine: Reports no additional endocrine complaints and Reports as per HPI Hematologic/Lymphatic: Hematologic/Lymphatic: Reports no additional hematologic/lymphatic complaints and Reports as per HPI Allergic/Immunologic: Allergic/Immunologic: Reports no additional allergic/immunologic complaints and Reports as per HPI [facility] Past Medical History Medical History No significant past medical history Surgical History Surgical History H/O shoulder surgery History of appendectomy Family History Family History Father COPD (chronic obstructive pulmonary disease) Social History Social History Smoking status: Current every day smoker Tobacco type: e-cigarettes/vaping Alcohol intake: current Drinks per week: 2 Alcohol use details: rare alcohol use Substance use: never Substance use type: does not use Do You Feel Safe in your Home?: Yes Lack of Transportation: No Lack of Food: Never True Current Housing: I Have Housing Concerned About Future Housing: No Difficulty Paying Gas/Electric Bills: No Difficulty Paying for Meds: No Currently Unemployed: No Education: High School Di
[2023-07-17 10:43] LABS: Basophils Absolute Auto 0.07 K/mm3 (0.00-0.10); Basophils Percent Auto 0.9 % (0.0-1.0); Eosinophils Absolute Auto 0.11 K/mm3 (0.02-0.50); Eosinophils Percent Auto 1.4 % (1.0-6.0); Hematocrit 45.7 % (40.0-54.0); Hemoglobin 16.2 g/dL (14.0-18.0); Immature Granulocyte Absolute 0.02 K/mm3 (0.00-0.00); Immature Granulocyte Percent A 0.2 % (0.0-0.0); Lymphocytes Absolute Auto 2.59 K/mm3 (1.10-4.50); Mean Corpuscular HGB Conc 35.4 g/dL (32.0-36.0); Mean Corpuscular Hemoglobin 30.3 pg (27.0-31.0); Mean Corpuscular Volume 85.4 fL (78.0-102.0); Mean Platelet Volume 8.9 fl (8.7-11.0); Monocytes Absolute Auto 0.62 K/mm3 (0.10-0.90); Monocytes Percent Auto 7.7 % (2.0-11.0); Neutrophils Absolute Auto 4.7 K/mm3 (1.7-7.2); Neutrophils Percent Auto 57.8 % (50.0-70.0); Platelet Count Result 327 K/mm3 (150-420); Red Blood Count 5.35 M/mm3 (4.70-6.10); Red Cell Distribution Width 11.6 % (11.6-14.4); White Blood Count 8.1 K/mm3 (4.8-10.8)
[2023-07-17] MEDS: ONDANSETRON HCL ODT 4 MG TABLET PO (10:43)
[2023-07-17 10:53] LABS: Appearance Urine Clear (Clear); Bilirubin Urine Negative (Negative); Blood Urine Negative (Negative); Color Urine Yellow (Yellow); Glucose Urine UA Negative (Negative); Ketones Urine Negative (Negative); Leukocyte Esterase Ur Negative LEU/UL (Negative); Nitrate Urine Negative (Negative); Protein Urine Negative (Negative); Specific Grav Ur 1.025 (1.010-1.020); Urobilinogen Urine 0.2 mg/dL (0.2-1.0)
[2023-07-17 10:54] LABS: Add Urine Microscopic? NO
[2023-07-17 10:57] LABS: Partial Thromboplastin Time 28.6 SEC (23.90-30.70)
[2023-07-17 11:02] LABS: Alanine Aminotransferase 53 U/L (16-63); Albumin Level 3.5 g/dL (3.4-5.0); Alkaline Phosphatase 64 U/L (46-116); Anion Gap 10 mmol/L (8-16); Aspartate Amino Transferase 17 U/L (15-37); Bilirubin,Total 0.5 mg/dL (0.00-1.00); Blood Urea Nitrogen 12 mg/dL (7-18); Calcium 8.1 mg/dL (8.5-10.1); Carbon Dioxide 26 mmol/L (21-32); Chloride 105 mmol/L (98-108); Estimated CRCL calculation 120 ml/min; Estimated Glomerular Filt Rate > 60; Glucose 89 mg/dL (70-99); Lipase 24 U/L (16-77); Osmolality Calculated 290 mOsm/kg (285-295); Sodium 141 mmol/L (136-145); Total Protein 6.8 g/dL (6.4-8.2)
[2023-07-17 11:14] LABS: Lactic Acid Reflex 1.6 mmol/L (0.4-2.0)
[2023-07-17 11:30] VITALS: BP 148/98; PULSE 78; RESP 18; O2SAT 98
== END 2023-07-17 11:30 | disposition home or self-care (01) ==
LOC: CHSED 11:14
PROVIDERS: Emergency Provider Internal Medicine Critical Care Medicine; PCP Internal Medicine
DX: K52.9 Noninfective gastroenteritis and colitis, unspecified (principal); F17.219 Nicotine dependence, cigarettes, with unspecified nicotine-induced disorders
CPT/HCPCS: 36415; 80053; 81003; 83605; 83690; 85025; 85730; 99283; A9270

== ENCOUNTER 2023-11-28 23:18 | Emergency (ER) | payer SELFPAY ==
--- NOTE | ~2023-11-28 | XR_ITS ---
EXAMINATION: XR foot RT min 3V DATE: 11/28/2023 23:29 INDICATION: Right foot injury and pain. TECHNIQUE: 4 views of right foot were obtained. COMPARISON: None. FINDINGS: Alignment is normal. No fracture. There is mild osteoarthritis of first metatarsophalangeal joint and some of the interphalangeal joints. IMPRESSION: 1. Mild polyarticular osteoarthritis. Reviewed, dictated and finalized at location E.
[2023-11-28 23:20] VITALS: BP 137/86; PULSE 89; RESP 18; TEMP 36.4; O2SAT 100
--- NOTE | 2023-11-28 23:22 | ED.LOWEXIN ---
HPI - Extremity Injury (Lower) General Stated Complaint: lower extremity problem Time Seen by Provider: 11/28/23 23:21 Source: patient and family Mode of arrival: ambulatory Limitations: no limitations History of Present Illness HPI Narrative: this is a 38 year male with no significant past medical history presents with some right plantar foot pain after he was jumping in [place] and hit a rock on the ball of his right foot causing pain with no numbness or tingling has reduced range of motion secondary to his pain as a brisk radial pulses right. complaint: foot injury Onset (ago): day(s) Injury: Right: foot ( tenderness on the ball of his right foot) Type of Injury: blunt Place: street/outdoors Severity: moderate Severity scale (1-10): 7 Relieving factors: immobilization and rest Exacerbating factors: weight bearing, movement and palpation Context: jumping Related Data Allergies Allergy/AdvReac Type Severity Reaction Status Date / Time No Known Allergies Allergy Verified 07/17/23 10:33 Review of Systems Review of Systems: All systems reviewed & are unremarkable except as noted in HPI and below PMFSH Past Medical History Medical History No significant past medical history Surgical History Surgical History H/O shoulder surgery History of appendectomy Family History Family History Father COPD (chronic obstructive pulmonary disease) Social History Social History Smoking status: Current every day smoker Tobacco type: e-cigarettes/vaping Alcohol intake: current Drinks per week: 2 Alcohol use details: rare alcohol use Substance use: never Substance use type: does not use Do You Feel Safe in your Home?: Yes Lack of Transportation: No Lack of Food: Never True Current Housing: I Have Housing Concerned About Future Housing: No Difficulty Paying Gas/Electric Bills: No Difficulty Paying for Meds: No Currently Unemployed: No Education: High School Diploma/GED Difficulty w/ Childcare or Family Care: No Spiritual care concerns: No Exam Const: General: healthy appearing Nutritional Appearance: well nourished Orientation/consciousness: patient oriented x3 Limitations: no limitations Resp: Effort & Inspection: normal respiratory effort Auscultation: clear to auscultation bilaterally Cardio: Rate: regular rate Rhythm: regular rhythm GI: GI Palp: Yes Soft to palpation Auscultation: normal bowel sounds Skin: General skin exam: normal color Extrem: Other: Tender the ball his right foot plantar surface with palpation and movement Course Course Emergency Course: patient received 60mg IM Toradol X-ray performed shows no acute fractures. Vital Signs Vital signs: Vital Signs Temperature 36.4 C 11/28/23 23:20 Pulse Rate 89 11/28/23 23:20 Respiratory Rate 18 11/28/23 23:20 Blood Pressure 137/86 11/28/23 23:20 Pulse Oximetry 100 11/28/23 23:20 Oxygen Delivery Room Air 11/28/23 23:20 Temperature 36.4 C 11/28/23 23:20 Pulse Rate 89 11/28/23 23:20 Respiratory Rate 18 11/28/23 23:20 Blood Pressure 137/86 11/28/23 23:20 Pulse Oximetry 100 11/28/23 23:20 Oxygen Delivery Room Air 11/28/23 23:20 Critical Care Time Critical Care Time Critical Care Time: No Discharge Plan Discharge Clinical Impression: Sprain of right foot Patient Disposition: Home, Self-Care Condition: Stable Instructions: Antibiotic Form, Foot Sprain (ED) Prescriptions: No Action Artificial Tears(wj-[id number]) 1-0.2-0.2 % Drops 1 drp EACH EYE PRN PRN (Reason: Dry Eye(S)) Qty: 15 0RF ondansetron HCl 4 mg tablet 4 mg PO Q8H PRN (Reason: nausea and vomiting) 4 Days Qty: 10 0RF Follow-up/Referrals: May
[2023-11-28] MEDS: KETOROLAC (*BKC) 60 MG/2 ML VIAL IM (23:34)
== END 2023-11-28 23:50 | disposition home or self-care (01) ==
LOC: CHSED 23:31
PROVIDERS: Emergency Provider Emergency Medicine; PCP Internal Medicine
DX: S93.601A Unspecified sprain of right foot, initial encounter (principal); F17.290 Nicotine dependence, other tobacco product, uncomplicated; W16.622A Jumping or diving into natural body of water striking bottom causing other injury, initial encounter; Y92.838 Other recreation area as the place of occurrence of the external cause
CPT/HCPCS: 73630; 96372; 99283; J1885

== ENCOUNTER 2024-04-14 19:19 | Emergency (ER) | payer SELFPAY ==
[2024-04-14 19:22] VITALS: BP 154/88; PULSE 86; RESP 16; TEMP 36.3; O2SAT 100
--- NOTE | 2024-04-14 19:33 | ED.EYEPROB ---
HPI - Eye Problem General Chief complaint: Eye Problems Stated complaint: eye pain Time Seen by Provider: 04/14/24 19:23 Source: patient Mode of arrival: ambulatory Limitations: no limitations History of Present Illness HPI Narrative: Patient is a 38-year-old male with a right eye injury this morning. 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 He found a piece of aluminum and it got out of the eye. He is still having pain of the right eye. chief complaint: eye pain ( Right), eye redness ( right), eye injury ( right) and foreign body ( right) Onset (ago): day(s) (1) Onset description: sudden Duration: constant Location: right eye Eye Symptoms: burning, redness, pain, foreign body sensation and photophobia Place: home and work Mechanism: direct trauma Severity: moderate Severity scale (1-10): 5 If Pain, Quality: sharp Context: other ( none) Associated symptoms: none Treatments Prior to Arrival: irrigated eye Related Data Allergies Allergy/AdvReac Type Severity Reaction Status Date / Time No Known Allergies Allergy Verified 04/14/24 19:48 Review of Systems Review of Systems: All systems reviewed & are unremarkable except as noted in HPI and below Constitutional: Constitutional: Reports no additional constitutional complaints Eyes: Eyes: Reports no additional eye complaints ENT: Reports system reviewed and no additional complaints, except as documented Cardiovascular: Cardiovascular: Reports no additional cardiovascular complaints Respiratory: Respiratory: Reports no additional respiratory complaints Gastrointestinal: Gastrointestinal: Reports no additional gastrointestinal complaints Genitourinary: Genitourinary: Reports no additional male genitourinary complaints Musculoskeletal: Musculoskeletal: Reports no additional musculoskeletal complaints Integumentary/Breasts: Skin/Breast: Reports system reviewed and no additional complaints, except as docu Neurologic: Reports system reviewed and no additional complaints, except as documented Psychiatric: Psychiatric: Reports no additional psychiatric complaints Endocrine: Endocrine: Reports no additional endocrine complaints Hematologic/Lymphatic: Hematologic/Lymphatic: Reports no additional hematologic/lymphatic complaints Allergic/Immunologic: Allergic/Immunologic: Reports no additional allergic/immunologic complaints PMFSH Past Medical History Medical History No significant past medical history Surgical History Surgical History H/O shoulder surgery History of appendectomy Family History Family History Father COPD (chronic obstructive pulmonary disease) Social History Social History Smoking status: Current every day smoker Tobacco type: e-cigarettes/vaping Alcohol intake: current Drinks per week: 2 Alcohol use details: rare alcohol use Substance use: never Substance use type: does not use Do You Feel Safe in your Home?: Yes Lack of Transportation: No Lack of Food: Never True Current Housing: I Have Housing Concerned About Future Housing: No Difficulty Paying Gas/Electric Bills: No Difficulty Paying for Meds: No Currently Unemployed: No Education: High School Diploma/GED Difficulty w/ Childcare or Family Care: No Spiritual care concerns: No Exam Const: General: healthy appearing Nutritional Appearance: well nourished Orientation/consciousness: patient oriented x3 Limitations: no limitations HENMT: Head: normal to inspection Ears: external ears normal Face/Nose/Sinus: Normal external nose present Eyes: Conjunctivae: abnormal conjunctivae and conjunctival abnormality right conjunctival injection Pupils: Equal, round and reactive pupils present EOM: EOMs intact bilaterally Direct Ophthalmoscopy: photophobia Other: examination of the right eye does not show any abnormality; tetracaine was placed for anesthesia; fluorescent stain used and 12 o'clock position of the cornea has a superficial scratch abrasion without deeper findings and no foreign body seen or appreciated Neck: Neck: normal visual inspection Chest: Chest palpation & inspection: normal inspection of the chest Resp: Effort & Inspection: normal respiratory effort and not labored Auscultation: clear to auscultation bilaterally and no crackles Cardio: Rate: regular rate Rhythm: regular rhythm Heart sounds: no murmurs GI: Inspection: non-distended GI Palp: Yes Soft to palpation and No Tenderness to palpation present (GI) Auscultation: normal bowel sounds : General: Yes bladder normal to palpation Back/Spine/Pelvis: Back: no CVA tenderness Skin: General skin exam: normal color Rashes: no rashes Wounds: no wounds Neuro: General: patient oriented x3 Cranial nerves: Yes Nystagmus not present Speech: normal speech Gait exam (Neuro): Normal gait present Extrem: General: normal to inspection Psych: Mental Status: mental status grossly normal Affect: normal affect Attitude: cooperative Procedures Other Procedure Procedure 1: Other Procedure: See eye exam MDM - Eye Problem MDM Narrative Medical decision making narrative: patient is a 38-year-old male with a right eye injury. Examination did not show foreign body. He does have a corneal abrasion on the right. We will give a dose of Cortisporin ophthalmic at this time. Tetanus shot was offered due to the fact that it was aluminum metal but he declined and information on tetanus was given. Discharge Plan Discharge Clinical Impression: Corneal abrasion Patient Disposition: Home, Self-Care Condition: Stable Instructions: Antibiotic Form, Corneal Abrasion (ED) Additional Instructions: please follow-up with the primary doctor in the next week. If pain continues then you will need to see a [facility] in the next week. Come back to the ER with any worse symptoms. We have offered a tetanus shot at this time but you have declined please consider tetanus shot this week. Prescriptions: New neomycin-polymyxin B-dexameth 3.5mg/mL-10,000 unit/mL-0.1 % drops,suspension 2 drp RIGHT EYE TID 7 Days Qty: 5 0RF Follow-up/Referrals: Pradip Olvear MD [Primary Care Provider] - Time of Disposition: 20:02
[2024-04-14] MEDS: TETRACAINE HCL 0.5% OPHTH SOLN 4 ML BTL 1 DROP EACH EYE (19:44)
[2024-04-14] MEDS: FLUORESCEIN SOD 1 MG/STRIP EACH EYE (19:44)
--- NOTE | 2024-04-14 19:44 | PC.NURSE ---
RN at bedside for ERP evaluation of eye; eye exam.
--- NOTE | 2024-04-14 19:57 | PC.NURSE ---
Patient asked by RN when his last tetanus injection was, stated to RN he was unsure. RN explained to patient that in cases such as these, ERP typically suggest patient given tetanus vaccination. Patient states he is good on that . For clarification, RN asked patient if he would like to receive the tetanus vaccine during his visit today and patient declined, stating he will talk to my doctor about it . Patient encouraged to follow up with his PCP and that he may return for a tetanus vaccine or he can seek one out at his doctors office or a local pharmacy. Patient verbalized understanding.
[2024-04-14] MEDS: NEOMYCIN/POLYMYXIN/HYDROCORT 7.5 ML EYE DROPS (*BKC) 2 DROP RIGHT EYE (20:02)
== END 2024-04-14 20:19 | disposition home or self-care (01) ==
PROVIDERS: Emergency Provider Emergency Medicine; PCP Internal Medicine
DX: S05.01XA Injury of conjunctiva and corneal abrasion without foreign body, right eye, initial encounter (principal); F17.290 Nicotine dependence, other tobacco product, uncomplicated; W22.8XXA Striking against or struck by other objects, initial encounter; Y99.0 Civilian activity done for income or pay
CPT/HCPCS: 99283; A9270